=== PATIENT | female | born 1995 | race Caucasian/White ===

== ENCOUNTER 2019-06-09 09:30 | Inpatient (IN) | payer MEDICAID ==
[~2019-06-09] VITALS: Ht 165.1 cm; Wt 77.1 kg
[2019-06-09] MEDS ORDERED: PNV1TABL50 PO (11:16)
[2019-06-09] MEDS ORDERED: FERR325T6 PO (11:16)
[2019-06-09] MEDS ORDERED: FISH GT (11:17)
[2019-06-09] MEDS ORDERED: NALOXONE HCL 0.4 MG/ML 1ML VIAL IM PRN (11:30)
[2019-06-09] MEDS ORDERED: LIDOCAINE HCL 1% 20ML VIAL (Pyxis) INJ INFIL NR (11:30)
[2019-06-09] MEDS ORDERED: MISOPROSTOL 100MCG TABLET VG SCH (11:30)
[2019-06-09] MEDS ORDERED: BUTORPHANOL TARTRATE 2 MG/ML VIAL IV PRN (11:30)
[2019-06-09 11:36] LABS: BASOPHILS % 0.3 % (0.0-2.0); EOSINOPHILS % 0.5 % (0.0-5.0); HEMOGLOBIN. 13.2 g/dL (12.0-16.0); LYMPHOCYTES % 21.1 % (20.0-50.0); MEAN CORPUSCULAR HEMOGLOBIN 33.1 pg (28.0-32.0); MEAN CORPUSCULAR VOLUME 92.9 fL (81.0-99.0); MEAN PLATELET VOLUME 8.5 fl (7.4-10.4); MONOCYTES % 6.1 % (2.0-8.0); PLATELET 188 x1000/uL (130-400); RED BLOOD CELL COUNT 3.99 mill/uL (4.2-5.4); RED CELL DISTRIBUTION WIDTH 13.1 % (11.6-14.6)
[2019-06-09] MEDS: LACTATED RINGERS 1,000 ML IV SCH ×2 (11:48→13:44)
[2019-06-09 11:49] LABS: INR 0.9; PARTIAL THROMBOPLASTIN TIME 27.4 sec (23.4-31.0)
[2019-06-09] MEDS: DEXT 5%/LR + PITOCIN 20UNITS/L 1,000 ML IV SCH ×2 (11:54→19:10)
[2019-06-09 11:58] LABS: CLARITY URINE CLEAR (CLEAR); COLOR URINE YELLOW (YELLOW); KETONES URINE NEGATIVE (NEGATIVE); LEUKOCYTE ESTERASE URINE 2+ (NEGATIVE); NITRITE URINE NEGATIVE (NEGATIVE); OCCULT BLOOD URINE 2+ (NEGATIVE); PH URINE 6.5 (4.5-8.0); PROTEIN URINE NEGATIVE (NEGATIVE); SPECIFIC GRAVITY URINE 1.015 (1.005-1.030); UROBILINOGEN URINE 0.2 E.U./dL (0.2-1.0)
[2019-06-09 12:24] LABS: HEPATITIS B SURFACE ANTIGEN NEGATIVE
[2019-06-09 12:27] LABS: *AMPHETAMINES SCREEN URINE NEGATIVE (NEGATIVE); *BARBITURATES SCREEN URINE NEGATIVE (NEGATIVE); *BENZODIAZEPINES SCREEN URINE NEGATIVE (NEGATIVE); *COCAINE SCREEN URINE NEGATIVE (NEGATIVE); METHADONE URINE SCREEN NEGATIVE (NEGATIVE); PHENCYCLIDINE URINE SCREEN NEGATIVE (NEGATIVE)
[2019-06-09 12:28] LABS: CANNABINOID URINE SCREEN NEGATIVE (NEGATIVE)
[2019-06-09 12:29] LABS: OPIATES URINE SCREEN NEGATIVE (NEGATIVE)
[2019-06-09 12:56] LABS: PROTHROMBIN TIME < 9.0 sec (9.6-11.0)
[2019-06-09 20:40] VITALS: BP 110/53
[2019-06-09 21:00] VITALS: BP 118/75
[2019-06-09 21:30] VITALS: BP 108/65
[2019-06-09] MEDS ORDERED: BISACODYL 10MG SUPP PR PRN (21:45)
[2019-06-09] MEDS ORDERED: HEMORRHOIDAL SUPP PR PRN (21:45)
[2019-06-09] MEDS ORDERED: ACETAMINOPHEN WITH CODEINE 300/30MG TABLET PO PRN (21:45)
[2019-06-09] MEDS ORDERED: RHO(D) IMMUNE GLOBULIN 300 MCG/SYR IM PRN (21:45)
[2019-06-09] MEDS ORDERED: DIPHENHYDRAMINE 25MG CAPSULE PO PRN (21:45)
[2019-06-09] MEDS ORDERED: IBUPROFEN 400MG TABLET PO PRN (21:45)
[2019-06-09] MEDS ORDERED: BENZOCAINE/LANOLIN/ALOE VERA SPRAY TOP PRN (21:45)
[2019-06-09] MEDS ORDERED: GLYCERIN/WITCH HAZEL LEAF MEDICATED PAD TOP PRN (21:45)
[2019-06-09] MEDS ORDERED: DEXT 5%/LR + PITOCIN 20UNITS/L 1,000 ML IV SCH (22:15)
[2019-06-10 04:29] VITALS: BP 100/51
[2019-06-10 07:30] VITALS: BP 102/54
[2019-06-10] MEDS: SIMETHICONE 80MG TABLET CHEW PO SCH ×3 (08:30→20:14)
[2019-06-10 08:37] LABS: HEMATOCRIT. 34.7 % (36.0-48.0); HEMOGLOBIN. 12.2 g/dL (12.0-16.0); MEAN CORPUSCULAR HEMOGLOBIN 32.7 pg (28.0-32.0); MEAN PLATELET VOLUME 8.8 fl (7.4-10.4); PLATELET 202 x1000/uL (130-400); RED BLOOD CELL COUNT 3.73 mill/uL (4.2-5.4); RED CELL DISTRIBUTION WIDTH 12.7 % (11.6-14.6)
[2019-06-10] MEDS: FERROUS SULFATE 325MG TABLET PO SCH (09:02)
[2019-06-10] MEDS: PRENATAL VIT/FE FUMARATE/FA TABLET PO SCH (09:02)
[2019-06-10 10:21] LABS: PLATELET ESTIMATE NORMAL
[2019-06-10 15:47] VITALS: BP 123/70
[2019-06-10 19:50] VITALS: BP 104/70
[2019-06-10] MEDS: MAGNESIUM/ALUMINUM HYDROXIDE/SIMETHICONE 30ML UDC PO SCH (20:15)
[2019-06-10] MEDS ORDERED: DOCUSATE SODIUM 100MG CAPSULE PO SCH (21:00)
[2019-06-11] VITALS: BP 108/67
[2019-06-11 07:55] VITALS: BP 105/58
[2019-06-11] MEDS: PRENATAL VIT/FE FUMARATE/FA TABLET PO SCH (08:44)
[2019-06-11] MEDS: FERROUS SULFATE 325MG TABLET PO SCH (08:45)
[2019-06-11] MEDS: MAGNESIUM/ALUMINUM HYDROXIDE/SIMETHICONE 30ML UDC PO SCH (08:45)
== END 2019-06-11 13:50 | disposition home or self-care (01) | DRG 560 ==
LOC: OBSVTOIN 09:30 → 8 EST LDRP 09:30 → 8EST 20:40
PROVIDERS: ADMIT Obstetrics & Gynecology; ATTEND Obstetrics & Gynecology
PROC: 10E0XZZ Delivery of Products of Conception, External Approach (ICD-10-PCS; principal; 2019-06-10)
PROC: 0KQM0ZZ Repair Perineum Muscle, Open Approach (ICD-10-PCS; 2019-06-10)
PROC: 3E0R3BZ Introduction of Anesthetic Agent into Spinal Canal, Percutaneous Approach (ICD-10-PCS; 2019-06-10)
PROC: 00HU33Z Insertion of Infusion Device into Spinal Canal, Percutaneous Approach (ICD-10-PCS; 2019-06-10)
DX: O70.1 Second degree perineal laceration during delivery (principal); Z37.0 Single live birth; Z3A.39 39 weeks gestation of pregnancy
CPT/HCPCS: 36415; 80305; 81003; 86592; 86703; 86762; 86850; 86900; 87340; J0595; J2590; J3490; J7120